=== PATIENT | female | born 1955 | race Caucasian/White ===

== ENCOUNTER 2022-12-12 11:46 | Emergency (ER) | payer MEDICARE, SELFPAY ==
[2022-12-12 11:48] VITALS: BP 134/64; PULSE 94; RESP 16; TEMP 36.3; O2SAT 97; BMI 42.2
--- NOTE | 2022-12-12 12:18 | ED.VIS.BACK ---
HPI <ENDY Go - Last Filed: 12/12/22 13:48> History of Present Illness Chief Complaint: Back Narrative Narrative: Patient is a 67-year-old female with history of hypertension, diabetes who presents to the [facility] with 2 weeks of left mid back pain. Patient states that this pain is intermittent, worse in the morning. Patient denies any known injury. Patient denies any shortness of breath, chest pain, patient denies any trauma to the area. Patient has no history of any blood clots in the legs or lungs. Patient denies any fever chills or cough. [facility] <ENDY Go - Last Filed: 12/12/22 13:48> [facility] Home Medications lidocaine 5 % topical patch (Lidoderm) 1 patch topical DAILY #15 ea 12/12/22 [Rx Last Taken Unknown] Allergy/AdvReac Type Severity Reaction Status Date / Time No Known Allergies Allergy Verified 12/12/22 11:48 Social History Smoking Status: Never smoker ROS <ENDY Go - Last Filed: 12/12/22 13:48> ROS ED ROS Narrative Constitutional: Negative for fever, chills, weight loss, weakness Eyes: Negative for vision loss, vision change, double vision ENT: Negative for any sore throat, ear pain, congestion Cardiovascular: Negative for any chest pain, tightness, palpitations Respiratory: Negative for any cough, sputum production, hemoptysis, dyspnea, dyspnea on exertion, orthopnea Gastrointestinal: Negative for any abdominal pain, nausea, vomiting, diarrhea, constipation, blood in stool, blood in vomit : Negative for any urinary frequency, dysuria, retention, blood in urine Muscle skeletal: Negative for any muscle joint pain, stiffness, myalgias, arthralgias, neck pain. Positive for right-sided mid back pain Neurological: Negative for any headache, syncope, numbness or tingling, dizziness Skin: Negative for any rashes, lumps, itching, abrasions, lacerations Psychiatric: Negative for any depression, anxiety, stress, suicidal ideation, homicidal ideation Hematologic: Negative for any easy bruising, excessive bruising, easy bleeding Allergies: Negative for any eczema, hives, rash EXAM <ENDY Go Last Filed: 12/12/22 13:48> Physical Exam Narrative Exam Narrative: Vital signs reviewed. HEET: Head normocephalic atraumatic, TMs clear bilaterally. Posterior pharynx is clear, moist mucous membranes. Nares clear bilaterally. Neck: Supple with no lymphadenopathy or tenderness. No signs of meningismus, negative jolt sign. Cardiac: Regular rate and rhythm no murmurs gallops or rubs, equal peripheral pulses bilaterally. Respiratory: Lungs clear to auscultation bilaterally. No chest tenderness. Abdomen: Soft, nontender, nondistended. No abdominal bruit or pulsatile masses. No hepatosplenomegaly Extremities: No peripheral edema, no signs of gross trauma or deformity. Active full range of motion of all extremities. Neuro: Cranial nerves II through XII intact, no focal neurological deficits. Skin: Clean dry and intact with no rash, purpura, petechiae, vesicles or pustules. Backs/flank: No CVA tenderness, no midline spinal tenderness, no deformity. Psych: Normal mood and affect. No SI, HI or acute psychosis. Const Vital Signs: 12/12/22 11:48 Temperature 97.4 F L Temperature Source Temporal Pulse Rate 94 Respiratory Rate 16 Blood Pressure 134/64 H Blood Pressure Mean 87 Pulse Ox 97 Oxygen Delivery Method Room Air <Dr. Federico Real MD - Last Filed: 12/12/22 15:03> Physical Exam Const Vital Signs: 12/12/22 11:48 Temperature 97.4 F L Temperature Source Temporal Pulse Rate 94 Respiratory Rate 16 Blood Pressure 134/64 H Blood Pressure Mean 87 Pulse Ox 97 Oxygen Delivery Method Room Air [facility] <ENDY Go - Last Filed: 12/12/22 13:48> [facility] Lab Data Attestation: I reviewed the patient's lab results. Labs: Laboratory Results - last 24 hr 12/12/22 12:40 Urine Color Yellow Urine Clarity Clear Urine pH 6.0 Ur Specific [place] 1.020 Urine Protein 15 H Urine Glucose (UA) Normal Urine Ketones Negative Urine Occult Blood Negative Urine Nitrite Negative Urine Bilirubin Negative Urine Urobilinogen Normal Ur Leukocyte Esterase Negative Urine RBC 0 SEEN Urine WBC 0 SEEN Ur Squamous Epith Cells 0 SEEN Urine Bacteria 0 SEEN Urine Mucus 0 SEEN Treatment and Re-Evaluation Narrative: Patient appears generally well, patient appears nontoxic, vital signs are stable. Patient presents to the emergency department with complaints of right-sided mid back pain. Patient's physical examination was consistent with muscle skeletal pain. This is been ongoing for 2 weeks. Patient states the pain waxes and wanes, worse with decreased movement like getting up in the morning. Considered a chest x-ray, thoracic spine x-ray however there is no trauma, there is no ecchymosis or signs of deformity, I do not believe that this is an appropriate test at this time. Patient was given a Lidoderm patch. Patient will continue Tylenol, ibuprofen and I will write her prescription for Lidoderm patches. She instructed to perform gentle stretching. I did speak with her son as well that was in the room. They were given return precaution. Patient will follow-up with her PCP and is stable for discharge. Patient's urinalysis was negative for any infection. The urinalysis was completed secondary to her complaints of frequent urination. However there is no glucose in the urine, there is no evidence of suspect any diabetes. Patient will follow up with her PCP regarding this. At patient is happy the plan of care and stable for discharge <Dr. Federico Real MD - Last Filed: 12/12/22 15:03> MDM MDM Narrative Medical decision making narrative: Seen and evaluated independently and in conjunction with nurse practitioner. Agree with notes above unless documented otherwise. Seems musculoskeletal etiology of patient's right low back pain. No CVA tenderness, I evaluated her back after lidocaine patch was put on and she was feeling a lot better and I was not able to reproduce her pain. Urinalysis shows no signs of infection. No neurologic symptoms in her lower extremities or bowel or bladder dysfunction, her lungs sound clear. Supportive care advised, do not think this is Pyelonephritis or renal colic, advised to follow-up after the weekend with her doctor. Lab Data Labs: Laboratory Results - last 24 hr 12/12/22 12:40 Urine Color Yellow Urine Clarity Clear Urine pH 6.0 Ur Specific [place] 1.020 Urine Protein 15 H Urine Glucose (UA) Normal Urine Ketones Negative Urine Occult Blood Negative Urine Nitrite Negative Urine Bilirubin Negative Urine Urobilinogen Normal Ur Leukocyte Esterase Negative Urine RBC 0 SEEN Urine WBC 0 SEEN Ur Squamous Epith Cells 0 SEEN Urine Bacteria 0 SEEN Urine Mucus 0 SEEN Discharge Plan Triage Chief Complaint: Back ED Midlevel Provider: Carlito Nam ED Provider: Federico Real Dx/Rx/DC Orders Clinical Impression: H/O urinary frequency, Acute thoracic myofascial strain Instructions: ED Back Sprain/Strain Prescriptions: New lidocaine [Lidoderm] 5 % adhesive patch,medicated 1 patch topical DAILY Qty: 15 0RF Rx Instructions: leave on most painful area for up to 12 hrs Primary Care Provider: Deyanira Oneil NP Referrals: Deyanira Oneil NP, [facility] [Primary Care Provider] - Activity Restrictions/Additional Instructions: Please follow-up with your PCP. Perform gentle stretching. Use Lidoderm patches. Continue to use ibuprofen and Tylenol. Your urinalysis was negative today. Disposition Disposition: Home, Self Care Discharge Date/Time: 12/12/22 13:51
[2022-12-12] MEDS: Lidocaine 5% Patch 1 PATCH TOPICAL (12:43)
[2022-12-12 12:45] LABS: Bacteria 0 SEEN /hpf (None Seen); Mucous, Urine 0 SEEN /hpf (<or=2+); Red Blood Cells-Urine 0 SEEN /hpf (0-5); Squamous Epithelial Cells - UA 0 SEEN /hpf (5-10); White Blood Cells 0 SEEN /hpf (0-5)
[2022-12-12 13:13] LABS: Color, Urine Yellow (Yellow); Glucose, Dipstick Normal (Normal); Ketone-Dipstick Negative (Negative); Leukocyte Esterase-Dipstick Negative /ul (Negative); Nitrite-Dipstick Negative (Negative); Occult Blood-Urine Negative /ul (Negative); Protein-Dipstick 15 mg/dl (Negative); Urine Bilirubin Dipstick Negative (Negative); Urine Clarity Clear (Clear); Urine Urobilinogen Normal (Normal)
== END 2022-12-12 13:51 | disposition home or self-care (01) ==
PROVIDERS: Nurse Practitioner; Emergency Provider Emergency Medicine; PCP Nurse Practitioner Adult Health; Visit Provider Emergency Medicine
DX: S39.012A Strain of muscle, fascia and tendon of lower back, initial encounter (principal); E11.9 Type 2 diabetes mellitus without complications; I10 Essential (primary) hypertension; Z87.448 Personal history of other diseases of urinary system; X58.XXXA Exposure to other specified factors, initial encounter
CPT/HCPCS: 81001; 99283